=== PATIENT | female | born 1960 | race Caucasian/White ===

== ENCOUNTER 2016-09-13 16:08 | Emergency (ER) | payer BC ==
[2016-09-13] MEDS ORDERED: LORazepam 2 MG/ML INJ IVP ONE (17:52)
--- NOTE | 2016-09-13 17:57 | EDPHY ---
H & P Time Seen by Provider: 09/13/16 17:24 HPI/ROS: CHIEF COMPLAINT: Tremulous HISTORY OF PRESENT ILLNESS: 56-year-old female presents to the emergency department by private vehicle with her feeling very tremulous. Patient has a history of anxiety and takes trazodone 150 mg at bedtime. She is prescribed 90 day supply and apparently ran out 4 days ago. They just flew in from [place] and the noticed that she was very tremulous and not steady on her feet. She has run out of her trazodone in the past and has never had this type of reaction before. She denies pain in her chest or difficulty breathing. Denies headache. Denies neck or back pain. She apparently has fallen multiple times over last several weeks. She is undergoing neurologic testing with a neurologist as well as a psychologist back in [place]. No URI symptoms. She denies alcohol abuse or any other substance abuse. REVIEW OF SYSTEMS: Constitutional: No fever, no chills. Eyes: No double or blurry vision. ENT: No sore throat. Respiratory: No cough, no shortness of breath. Cardiac: No chest pain. Gastrointestinal: No abdominal pain, vomiting or diarrhea. Genitourinary: No dysuria. Musculoskeletal: No neck or back pain. Skin: No rashes. Neurological: No headache. Past Medical/Surgical History: Anxiety, insomnia Social History: from [place] Smoking Status: Never smoked Physical Exam: General Appearance: Alert, no distress. 149/96, heart rate 89, 95% on room air. Patient is very tremulous. She has unsteady gait. Eyes: Pupils equal and round. Extraocular motions are all intact. ENT: Mouth: Mucous membranes moist. Respiratory: No wheezing, rhonchi, or rales, lungs are clear to auscultation. Cardiovascular: Regular rate and rhythm. Gastrointestinal: Abdomen is soft and nontender, no masses, no rebound or guarding, bowel sounds normal. Neurological: Alert and oriented x 3, cranial nerves II through XII grossly intact Skin: Warm and dry, no rashes. Musculoskeletal: Nontender to palpate along the cervical, thoracic or lumbar spine. Neck is supple. Extremities: Full range of motion and no peripheral edema. Psychiatric: Patient is oriented X 3, there is no agitation. Constitutional: Initial Vital Signs Temperature (C) 36.7 C 09/13/16 16:18 Heart Rate 89 09/13/16 16:18 Respiratory Rate 18 09/13/16 16:18 Blood Pressure 149/96 H 09/13/16 16:18 O2 Sat (%) 95 09/13/16 16:18 O2 Delivery Mode Room Air Allergies/Adverse Reactions: No Known Allergies Allergy (Unverified 09/13/16 16:17) Home Medications: Medication Instructions Recorded Esgic Capsule 09/13/16 Nexium 09/13/16 traZODone 09/13/16 traZODone [traZODone 150MG (*)] 150 mg PO HS #10 tab 09/13/16 Medical Decision Making ED Course/Re-evaluation: The case was discussed with Dr. Carson Herbert, secondary supervising physician, who did not directly evaluate the patient but agrees with treatment and plan. Laboratory studies were unremarkable. The patient did have blood in her urine I did encourage her to have close follow-up with her primary care provider to have this recheck. Should also have her liver function tests repeated. The patient was given 1 mg of Ativan IV and was feeling much better. She was much less tremulous. She is also able to ambulate on her own without difficulty. The patient has had similar symptoms in the past and has been evaluated by a neurologist as well as the psychologist back in their hometown. The patient does not have a headache. She is mentating normally and answering questions appropriately. The and patient thinks that this could be related to withdrawing from trazodone. She typically takes 150 mg at bedtime. She has been without this medication for at least 4 days. 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 is requesting a 1 time dose for tonight and then he will go to [facility] to pickling tank operator her prescription in the morning. I did explain to the patient as well as the that they should return to the emergency department immediately if she develops any recurring tremulousness, ataxia, if she developed chest pain or difficulty breathing, headache, or if she felt worse in any way. They were comfortable with this plan. Differential Diagnosis: Including but not limited to electrolyte abnormality, myocardial infarction, pulmonary embolism, hypoglycemia, infectious process, head injury and intoxicants. - Data Points Laboratory Results: Laboratory Results 09/13/16 18:13 09/13/16 18:13 09/13/16 09/13/16 09/13/16 18:13 18:13 18:13 WBC 4.54 10^3/uL 10^3/uL (3.80-9.50) RBC 4.20 10^6/uL 10^6/uL (4.18-5.33) Hgb 14.2 g/dL g/dL (12.6-16.3) Hct 40.1 % % (38.0-47.0) MCV 95.5 fL fL (81.5-99.8) MCH 33.8 pg pg (27.9-34.1) MCHC 35.4 g/dL g/dL (32.4-36.7) RDW 12.0 % % (11.5-15.2) Plt Count 88 10^3/uL L 10^3/uL (150-400) MPV 8.6 fL L fL (8.7-11.7) Neut % (Auto) 67.0 % % (39.3-74.2) Lymph % (Auto) 17.6 % % (15.0-45.0) Webster % (Auto) 13.0 % % (4.5-13.0) Eos % (Auto) 1.8 % % (0.6-7.6) Baso % (Auto) 0.4 % % (0.3-1.7) Nucleat RBC Rel Count 0.0 % % (0.0-0.2) Absolute Neuts (auto) 3.04 10^3/uL 10^3/uL (1.70-6.50) Absolute Lymphs (auto) 0.80 10^3/uL L 10^3/uL (1.00-3.00) Absolute Monos (auto) 0.59 10^3/uL 10^3/uL (0.30-0.80) Absolute Eos (auto) 0.08 10^3/uL 10^3/uL (0.03-0.40) Absolute Basos (auto) 0.02 10^3/uL 10^3/uL (0.02-0.10) Absolute Nucleated RBC 0.00 10^3/uL 10^3/uL (0-0.01) Immature Gran % 0.2 % % (0.0-1.1) Immature Gran # 0.01 10^3/uL 10^3/uL (0.00-0.10) Sodium 135 mEq/L mEq/L (134-144) Potassium 3.6 mEq/L mEq/L (3.5-5.2) Chloride 96 mEq/L L mEq/L (97-110) Carbon Dioxide 27 mEq/l mEq/l (22-31) Anion Gap 12 mEq/L mEq/L (8-16) BUN 11 mg/dL mg/dL (7-23) Creatinine 0.5 mg/dL L mg/dL (0.6-1.0) Estimated GFR > 60 Glucose 158 mg/dL H mg/dL (70-100) Calcium 9.6 mg/dL mg/dL (8.5-10.4) Total Bilirubin 1.0 mg/dL mg/dL (0.1-1.4) Conjugated Bilirubin 0.4 mg/dL mg/dL (0.0-0.5) Unconjugated Bilirubin 0.6 mg/dL mg/dL (0.0-1.1) AST 75 IU/L H IU/L (14-46) ALT 63 IU/L H IU/L (9-52) Alkaline Phosphatase 107 IU/L IU/L (38-126) Troponin I < 0.012 ng/mL ng/mL (0-0.034) Total Protein 7.1 g/dL g/dL (6.3-8.2) Albumin 4.7 g/dL g/dL (3.5-5.0) Lipase 200.0 IU/L IU/L (23-300) Urine Color Urine Appearance Urine pH Ur Specific Pimento Urine Protein Urine Ketones Urine Blood Urine Nitrate Urine Bilirubin Urine Urobilinogen Ur Leukocyte Esterase Urine RBC Urine WBC Ur Epithelial Cells Urine Glucose Ethyl Alcohol < 10 mg/dL mg/dL (0-10) 09/13/16 14:25 WBC RBC Hgb Hct MCV MCH MCHC RDW Plt Count MPV Neut % (Auto) Lymph % (Auto) Webster % (Auto) Eos % (Auto) Baso % (Auto) Nucleat RBC Rel Count Absolute Neuts (auto) Absolute Lymphs (auto) Absolute Monos (auto) Absolute Eos (auto) Absolute Basos (auto) Absolute Nucleated RBC Immature Gran % Immature Gran # Sodium Potassium Chloride Carbon Dioxide Anion Gap BUN Creatinine Estimated GFR Glucose Calcium Total Bilirubin Conjugated Bilirubin Unconjugated Bilirubin AST ALT Alkaline Phosphatase Troponin I Total Protein Albumin Lipase Urine Color RED Urine Appearance CLEAR Urine pH 8.0 H (5.0-7.5) Ur Specific Pimento 1.004 (1.002-1.030) Urine Protein NEGATIVE (NEGATIVE) Urine Ketones NEGATIVE (NEGATIVE) Urine Blood NEGATIVE (NEGATIVE) Urine Nitrate NEGATIVE (NEGATIVE) Urine Bilirubin NEGATIVE (NEGATIVE) Urine Urobilinogen NEGATIVE EU EU (0.2-1.0) Ur Leukocyte Esterase 2+ H (NEGATIVE) Urine RBC 5-10 /hpf H /hpf (0-3) Urine WBC 1-3 /hpf /hpf (0-3) Ur Epithelial Cells TRACE /lpf /lpf (NONE-1+) Urine Glucose NEGATIVE (NEGATIVE) Ethyl Alcohol Medications Given: Discontinued Medications Sodium Chloride (Ns) 1,000 mls @ 0 mls/hr IV ONCE ONE PRN Reason: Wide Open Stop: 09/13/16 18:27 Last Admin: 09/13/16 18:38 Dose: 1,000 mls Lorazepam (Ativan Injection) 1 mg IVP EDNOW ONE Stop: 09/13/16 17:53 Last Admin: 09/13/16 18:38 Dose: 1 mg Trazodone HCl (Trazodone) 150 mg PO EDNOW ONE Stop: 09/13/16 20:19 Last Admin: 09/13/16 20:32 Dose: 150 mg Departure - Departure Disposition: Home, Routine, Self-Care Clinical Impression: Tremulousness Medication withdrawal Qualifiers: Substance type: other psychoactive substance Qualified Code(s): F19.939 - Other psychoactive substance use, unspecified with withdrawal, unspecified Condition: Good Instructions: Insomnia (ED), Anxiety (ED) Additional Instructions: Continue Trazadone at bedtime. Return to the emergency department if you developed recurring difficulty walking , if you feel weak, if you feel dizzy, or if you feel worse in any way. Referrals: BRY STEPHENSON [Other] - As per Instructions Prescriptions: traZODone [traZODone 150MG (*)] 150 mg PO HS #10 tab
[2016-09-13 18:20] LABS: % IMMATURE GRANULYOCYTES 0.2 % (0.0-1.1); ABSOLUTE IMMATURE GRANULOCYTES 0.01 10^3/uL (0.00-0.10); ADD DIFF? NO; ADD MORPH? NO; ADD SCAN? NO; ATYPICAL LYMPHOCYTE FLAG 0 (0-99); FRAGMENT RBC FLAG 0 (0-99); HEMATOCRIT 40.1 % (38.0-47.0); HEMOGLOBIN 14.2 g/dL (12.6-16.3); LEFT SHIFT FLG 0 (0-99); LIPEMIA HEMOLYSIS FLAG 90 (0-99); MEAN CELL HEMOGLOBIN 33.8 pg (27.9-34.1); MEAN CELL HEMOGLOBIN CONCENTR. 35.4 g/dL (32.4-36.7); MEAN CELL VOLUME 95.5 fL (81.5-99.8); MEAN PLATELET VOLUME 8.6 fL (8.7-11.7); PLATELET CLUMPS FLAG 10 (0-99); PLATELET COUNT 88 10^3/uL (150-400)
[2016-09-13] MEDS ORDERED: NS 1,000 ML IV ONE (18:26)
[2016-09-13 18:35] LABS: ANION GAP 12 mEq/L (8-16); CALCIUM 9.6 mg/dL (8.5-10.4); CARBON DIOXIDE 27 mEq/l (22-31); CHLORIDE 96 mEq/L (97-110); CREATININE 0.5 mg/dL (0.6-1.0); ETHANOL SERUM < 10 mg/dL (0-10); GLOMERULAR FILTRATION RATE > 60; GLUCOSE 158 mg/dL (70-100); POTASSIUM 3.6 mEq/L (3.5-5.2); SODIUM 135 mEq/L (134-144)
[2016-09-13 18:38] LABS: COLOR RED; LEUKOCYTE ESTERASE,URINE 2+ (NEGATIVE); NITRITE,URINE NEGATIVE (NEGATIVE)
--- NOTE | 2016-09-13 18:39 | CPEKG ---
Heart Rate: 80 RR Interval: 750 P-R Interval: 156 QRSD Interval: 90 QT Interval: 420 QTC Interval: 485 P Grady: -3 QRS Grady: -3 T Wave Grady: 17 EKG Severity - NORMAL ECG - EKG Impression: SINUS RHYTHM Electronically Signed By: Jelena Evans 14-Sep-2016 11:51:56
[2016-09-13 18:45] VITALS: O2SAT 96
[2016-09-13 18:57] LABS: ALANINE AMINOTRANSFERASE 63 IU/L (9-52); ALBUMIN 4.7 g/dL (3.5-5.0); ALKALINE PHOSPHATASE 107 IU/L (38-126); ASPARTATE AMINOTRANSFERASE 75 IU/L (14-46); BILIRUBIN-CONJUGATED 0.4 mg/dL (0.0-0.5); BILIRUBIN-UNCONJUGATED 0.6 mg/dL (0.0-1.1); TOTAL PROTEIN 7.1 g/dL (6.3-8.2)
[2016-09-13 19:08] LABS: TROPONIN I < 0.012 ng/mL (0-0.034)
[2016-09-13 20:33] VITALS: BP 143/81; PULSE 68; RESP 17; TEMP 98.2
== END 2016-09-13 20:32 | disposition home or self-care (01) ==
DX: R25.1 Tremor, unspecified (principal); F19.939 Other psychoactive substance use, unspecified with withdrawal, unspecified
CPT/HCPCS: 96374; G0480; J2060